=== PATIENT | female | born 1945 | race Caucasian/White ===

== ENCOUNTER 2022-08-09 05:14 | Observation (INO) ==
--- NOTE | 2022-07-21 15:25 | PAT Medication Instructions ---
Medication Instructions Date of Service July 21, 2022 Home Medications amlodipine 5 mg tablet 5 mg PO QPM aspirin 81 mg tablet,delayed release 81 mg PO QAM atorvastatin 80 mg tablet 80 mg PO QPM carvedilol 6.25 mg tablet 6.25 mg PO BID empagliflozin 25 mg tablet (Jardiance) 25 mg PO QAM levothyroxine 75 mcg capsule 75 mcg PO QAM linagliptin 5 mg tablet (Tradjenta) 5 mg PO QAM losartan 25 mg tablet 25 mg PO QAM montelukast 10 mg tablet 10 mg PO QPM omeprazole 20 mg capsule,delayed release 20 mg PO BID sertraline 25 mg tablet 25 mg PO QPM STOP 3 days before surgery empagliflozin 25 mg tablet (Jardiance) 25 mg PO QAM DO NOT take the morning of surgery linagliptin 5 mg tablet (Tradjenta) 5 mg PO QAM losartan 25 mg tablet 25 mg PO QAM Take morning of surgery With a small sip of water, OTHERWISE NOTHING TO EAT OR DRINK AFTER MIDNIGHT: aspirin 81 mg tablet,delayed release 81 mg PO QAM (unless directed otherwise by surgeon) carvedilol 6.25 mg tablet 6.25 mg PO BID levothyroxine 75 mcg capsule 75 mcg PO QAM omeprazole 20 mg capsule,delayed release 20 mg PO BID Take evening before surgery amlodipine 5 mg tablet 5 mg PO QPM atorvastatin 80 mg tablet 80 mg PO QPM carvedilol 6.25 mg tablet 6.25 mg PO BID montelukast 10 mg tablet 10 mg PO QPM sertraline 25 mg tablet 25 mg PO QPM omeprazole 20 mg capsule,delayed release 20 mg PO BID Other Notes If you have any questions please call us at [phone] or [phone] or [phone] or [phone]
--- NOTE | 2022-07-25 10:46 | Anesthesiology Consultation ---
Date of Service July 25, 2022 Assessment & Plan (1) Encounter for pre-operative examination: - COVID screening: Per assessment on 07/25: No known COVID-19 positive contacts or current COVID-19 related symptoms. Travel screen negative. Patient vaccinated. At surgeon discretion if preop Covid testing being done. - Check BS[facility] AM DOS - Outpatient joint assessment: Pt currently scheduled for inpatient pathway. If surgeon requests review for outpatient joint pathway, patient is not recommended candidate for outpatient joint program from anesthesia standpoint. Chart Review Chart Review: Acceptable Risk for Surgery and Patient seen in Pre Admission Testing Teaching & Discussion Pre-Anesthesia Teaching/Discussion Notes: Instructed NPO after midnight before surgery,except medications with 15 cc of water. Medication instructions provided according to the PAT guidelines. History Surgery Operation Date: 08/09/22 10:45 Proposed Procedures p Right Total Knee Arthroplasty - Imtiaz Gay DO Height/Weight Height: 5 ft Weight: 61 kg Allergies Allergy/AdvReac Type Severity Reaction Status Date / Time house dust mite Allergy Unknown Verified 07/21/22 13:54 No Known Drug Allergies Allergy Unknown Verified 07/21/22 13:54 pollen Allergy Unknown Uncoded 07/21/22 13:54 Medications Home Medications Medication Instructions Recorded Confirmed Last Taken amlodipine 5 mg tablet 5 mg PO QPM 11/03/20 07/21/22 Unknown aspirin 81 mg tablet,delayed 81 mg PO QAM 11/03/20 07/21/22 Unknown release atorvastatin 80 mg tablet 80 mg PO QPM 11/03/20 07/21/22 Unknown carvedilol 6.25 mg tablet 6.25 mg PO BID 11/03/20 07/21/22 Unknown empagliflozin 25 mg tablet 25 mg PO QAM 11/03/20 07/21/22 Unknown (Jardiance) levothyroxine 75 mcg capsule 75 mcg PO QAM 11/03/20 07/21/22 Unknown linagliptin 5 mg tablet (Tradjenta) 5 mg PO QAM 11/03/20 07/21/22 Unknown losartan 25 mg tablet 25 mg PO QAM 11/03/20 07/21/22 Unknown montelukast 10 mg tablet 10 mg PO QPM 11/03/20 07/21/22 Unknown omeprazole 20 mg capsule,delayed 20 mg PO BID 11/03/20 07/21/22 Unknown release sertraline 25 mg tablet 25 mg PO QPM 11/03/20 07/21/22 Unknown Past Medical History Medical History Chronic rhinitis Depression Diabetes Environmental and seasonal allergies GERD (gastroesophageal reflux disease) Hyperlipidemia Hypertension LBBB (left bundle branch block) Chronic (per pt, diagnosed 20+ years ago), noted on 07/02/2021 EKG scanned into [employer] Sleep apnea CPAP (compliant) TMJ arthralgia resolved Exercise / Class Metabolic Activity II 4-5 Yardwork/Stairs/Walk up hill Past Family History Family History Other Asthma Heart disease Hypertension No family history of adverse response to anesthesia Stroke Past Surgical History Surgical History History of carpal tunnel release of both wrists 2021 History of esophagogastroduodenoscopy (EGD) History of hysterectomy History of knee surgery LEFT History of tonsillectomy Hx of cardiac catheterization 20+ years ago (told LBBB) > no stents/significant findings per pt Hx of colonoscopy Nausea and vomiting after administration of anesthetic agent Status post wisdom tooth extraction Past Anesthesia History No Hx of Anesthesia Complications (except remote hx PONV) and No Family Hx of Anesthesia Complications History of PONV History of PONV (Remote) and Hx of Motion Sickness Social History Smoking Status: Never smoker Do You Dip or Chew Tobacco: No Hx Alcohol Use: Yes alcohol intake frequency: a few times a month Hx Substance Use: No substance use type: does not use Review of Systems Patient denies chest pain, shortness of breath, dyspnea on exertion, fever, chills, cough, wheezing, palpitations. Physical Exam Vital Signs VITALS BP 113/74 P 83 TEMP 98.5 SP02 95%RA RESP 16 PHYSICAL Full cervical extension range of motion. Full TMJ range of motion. TMD 3 finger breaths Mallampati Score 3 Dentition: missing molars, dental work (on sides) Lungs: clear throughout to auscultation Cardiac: regular rate and rhythm, no murmurs noted Spine: normal Carotid arteries: negative bruit Extremities: no edema Lab Results Anesthesia Preop Results Results Anesthesia Widget: WBC 7.52 K/ul (4.8-10.8) 07/25/22 Hgb 14.6 g/dl (12.0-16.0) 07/25/22 Hct 43.0 % (37.0-47.0) 07/25/22 Plt 303 K/uL (130-400) 07/25/22 Na 143 mmol/L (136-145) 07/25/22 K 3.4 mmol/L (3.5-5.1) L 07/25/22 Cl 105 mmol/L (98-107) 07/25/22 CO2 32 mmol/L (21-32) 07/25/22 BUN 19 mg/dl (6-23) 07/25/22 Creat 0.72 mg/dl (0.6-1.2) 07/25/22 Glucose Level 127 mg/dl (70-99(Fasting)) H 07/25/22 PT 10.8 Seconds (9.0-12.0) 07/25/22 PTT 25.4 Seconds (21.0-31.0) 07/25/22 INR 1.0 (0.9-1.1) 07/25/22 HA1c 6.7 % (4.5-5.6) H 07/25/22 Urine Color Yellow 07/25/22 Urine Appearance Clear (Clear) 07/25/22 Urine pH 6.0 (4.5-7.5) 07/25/22 Urine Specific [place] 1.020 (1.000-1.030) 07/25/22 Urine Protein Negative (Negative) 07/25/22 Urine Glucose (UA) 3+ (Negative) H 07/25/22 Urine Ketones Negative (Negative) 07/25/22 Urine Blood Negative (Negative) 07/25/22 Urine Nitrite Negative (Negative) 07/25/22 Urine Bilirubin Negative (Negative) 07/25/22 Urine Urobilinogen Negative (Negative) 07/25/22 Urine Leukocyte Esterase Negative (Negative) 07/25/22 Blood Type A Positive 07/25/22 Antibody Screen NEGATIVE 07/25/22 Testing Electrocardiogram Date: 07/25/22 NSR at 78bpm. LAD. LBBB (chronic). Chest X-Ray Date: 07/25/22 Findings: + NAD COVID-19 Risk Screen Screening Information COVID-19 Screen Date: 07/25/22 Exposure 21 Days Family/Household +COVID Last 21 Days: No Exposure 10 Days Any COVID Exposure Last 10 Days: No Symptoms Last 10 Days Experienced COVID Sx Last 10 Days: No + COVID 0-90 Days COVID + in Last 0-90 Days: No
--- NOTE | 2022-07-25 15:33 | History & Physical Report ---
Date of Service July 25, 2022 date of surgery: 08/09/22 Procedure: Right Total Knee Arthroplasty Surgeon: Imtiaz Gay Assessment & Plan (1) Arthritis of right knee: Plan: Risk and benefits of the procedure discussed in detail, she would like to proceed with a right total knee replacement. We will stay overnight at the hospital with plan for discharge home with home health physical therapy. She does live alone however her next-door neighbor is her family member and states they are willing to help her out after the surgery. Will place on aspirin 81 mg twice a day for 1 month postop, she will need medical clearance from Dr. Singh, she is scheduled for this on 07/26. She otherwise has no other questions or concerns and would like to proceed with right total knee replacement The risks and benefits have been discussed including, but not limited to, risk of infection, nerve injury, stiffness, loss of motion, failure to improve, etc. Reasonable outcomes and options of treatment were discussed. An explanation of appropriate alternatives to the procedure that may be advantageous were discussed and their risks and benefits, as well as the risks and benefits of not proceeding with treatment. I offered to answer any additional inquiries concerning the treatment involved. All the patient's questions were answered. The patient is agreeable, understanding of the treatment plan and alternatives, and wishes to proceed with the treatment plan. History of Present Illness Chief Complaint: Right knee pain Primary Care Provider: Jacques Fletcher DO Ms Kitchen is a pleasant 76-year-old female who presents for preop evaluation prior to right total knee replacement. She states she been having pain in his knee for many years now which is gradually worsened and is now affecting her daily activities including walking standing using stairs. She denies any previous surgeries has tried multiple cortisone injections as well as viscosupplementation without relief. She does use Tylenol as well on occasion for pain. Rates her current pain a 7 out of 10. At this point time is felt conservative measures like proceed with a right total knee replacement Allergies Allergy/AdvReac Type Severity Reaction Status Date / Time house dust mite Allergy Unknown Verified 07/21/22 13:54 No Known Drug Allergies Allergy Unknown Verified 07/21/22 13:54 pollen Allergy Unknown Uncoded 07/21/22 13:54 Home Medications Medication Instructions Recorded Confirmed Type amlodipine 5 mg tablet 5 mg PO QPM 11/03/20 07/21/22 History aspirin 81 mg tablet,delayed 81 mg PO QAM 11/03/20 07/21/22 History release atorvastatin 80 mg tablet 80 mg PO QPM 11/03/20 07/21/22 History carvedilol 6.25 mg tablet 6.25 mg PO BID 11/03/20 07/21/22 History empagliflozin 25 mg tablet 25 mg PO QAM 11/03/20 07/21/22 History (Jardiance) levothyroxine 75 mcg capsule 75 mcg PO QAM 11/03/20 07/21/22 History linagliptin 5 mg tablet (Tradjenta) 5 mg PO QAM 11/03/20 07/21/22 History losartan 25 mg tablet 25 mg PO QAM 11/03/20 07/21/22 History montelukast 10 mg tablet 10 mg PO QPM 11/03/20 07/21/22 History omeprazole 20 mg capsule,delayed 20 mg PO BID 11/03/20 07/21/22 History release sertraline 25 mg tablet 25 mg PO QPM 11/03/20 07/21/22 History Past Med/Surg History Medical History Chronic rhinitis Depression Diabetes Environmental and seasonal allergies GERD (gastroesophageal reflux disease) Hyperlipidemia Hypertension LBBB (left bundle branch block) Chronic (per pt, diagnosed 20+ years ago), noted on 07/02/2021 EKG scanned into [facility] [employer] [facility] ([facility]) Sleep apnea CPAP (compliant) TMJ arthralgia resolved Surgical History History of carpal tunnel release of both wrists 2021 History of esophagogastroduodenoscopy (EGD) History of hysterectomy History of knee surgery LEFT History of tonsillectomy Hx of cardiac catheterization 20+ years ago (told LBBB) > no stents/significant findings per pt Hx of colonoscopy Nausea and vomiting after administration of anesthetic agent Status post wisdom tooth extraction Family History Other Asthma Heart disease Hypertension No family history of adverse response to anesthesia Stroke Social History Smoking Status: Never smoker Second Hand Exposure: No; Hx Alcohol Use: Yes Alcohol Intake Frequency: Monthly or Less Hx Substance Use: No Preferred Language: Bulgarian Communication Ability: Effective Copy Chief Required: No Beliefs That Will Affect Care: None marital status: Current Living Situation: Alone current occupational status: retired How many Children do You have: 3 Feels Safe at Home: Yes Assistive Devices: CPAP and Glasses Review of Systems 2 Review of Systems: All systems reviewed & are unremarkable except as noted in HPI & below Constitutional: no fever, no chills and no sweats Respiratory: no cough and no dyspnea Cardiovascular: no chest pain, no dyspnea and no orthopnea Gastrointestinal: no abdominal pain, no nausea and no vomiting Musculoskeletal: as per Subjective / HPI Physical Exam Physical Exam: HT: 5ft WT: 61kg Constitutional: WD/WN, vitals as above no acute distress Respiratory: normal respiratory effort, lungs clear to auscultation no respiratory distress, no labored breathing and does not use accessory muscles Cardiovascular: RRR, no murmur, no edema Gastrointestinal (Abdomen): normal bowel sounds, soft, nontender, no hepatosplenomegaly Musculoskeletal: Knee: + knee abnormal to inspection (Right Knee: ), + effusion (+1 effusion), + limited ROM of knee (ROM 0/3/110), + knee ROM with crepitation, + joint line tenderness (medial joint line) and + Komal's sign positive; no deformity, no skin erythema, no ecchymosis, no valgus laxity, no varus laxity, anterior drawer test negative, Shayla's sign negative and pivot shift test negative Results & Data Results & Data ([facility]) Diagnostic Findings Right Knee X-ray: Right knee series showing advanced degenerative changes to the right knee, narrowing of the medial compartment and patello-femoral joint with patellar spurring noted, findings showing joint space narrowing of the medial compartment and patello-femoral joint, osteophyte formation and subchondral sclerosis noted. overall varus alignment. no acute bony pathology noted.
[2022-08-09] MEDS ORDERED: dexAMETHasone 4 MG TAB PO SCH (06:00)
[2022-08-09] MEDS ORDERED: FAMOTIDINE 20 MG TAB PO SCH (06:00)
[2022-08-09] MEDS ORDERED: TRANEXAMIC ACID 1,000 MG **IV Pre-op IV SCH (06:00)
[2022-08-09] MEDS ORDERED: CeleBREX 200 MG CAP PO SCH (06:00)
[2022-08-09] MEDS ORDERED: TRANEXAMIC ACID 1,000 MG **IV Intra-op IV SCH (06:00)
[2022-08-09] MEDS ORDERED: GABAPENTIN 300 MG CAP PO SCH (06:00)
[2022-08-09] MEDS ORDERED: ACETAMINOPHEN 500 MG TAB PO SCH (06:00)
[2022-08-09] MEDS ORDERED: METOCLOPRAMIDE HCL 10 MG TABLET PO SCH (06:00)
[2022-08-09] MEDS ORDERED: ceFAZolin 2000MG 2,000 MG/15 ML SYR IV SCH (06:00)
[2022-08-09] MEDS ORDERED: LR 500ML BOLUS, THEN 15ML/HR IV SCH (06:00)
[2022-08-09] MEDS ORDERED: ROPIVACAINE 0.5% HCL/PF 150 MG, BUPIVACAINE 0.75% MPF 20 ML, EPINEPHrine 30MG/30ML (OR ... INSTIL SCH (06:00)
[2022-08-09] MEDS ORDERED: ROPIVACAINE 0.5% 5 MG/ML 30 ML VIAL ONE (06:14)
[2022-08-09] MEDS ORDERED: BUPIVACAINE 0.5 % 5 MG/1 ML PF 10ML VIAL ONE (06:14)
[2022-08-09] MEDS ORDERED: ORTHO JOINT ANESTHETIC ONE (06:37)
[2022-08-09] MEDS ORDERED: PROPOFOL IV EMULSION 10 MG/ML 20 ML VIAL IV ONE (06:42)
[2022-08-09] MEDS ORDERED: LIDOCAINE 2% MPF LOCAL 5 ML VIAL INFIL ONE (06:42)
[2022-08-09] MEDS ORDERED: MIDAZOLAM HCL 1 MG/ML 2ML VIAL ONE (06:42)
[2022-08-09] MEDS ORDERED: fentaNYL citrate 100 MCG/2 ML VIAL IV PRN (06:45)
[2022-08-09] MEDS ORDERED: ATROPINE SULFATE 0.1 MG/ML 10ML SYR IV PRN (06:45)
[2022-08-09] MEDS ORDERED: ePHEDrine sulfate 50 MG/ML AMP IV PRN (06:45)
[2022-08-09] MEDS ORDERED: ONDANSETRON INJ 2 MG/ML 2 ML VIAL IV PRN ×2 (06:45→09:50)
--- NOTE | 2022-08-09 07:05 | History & Physical Bridge Note ---
Date of Service August 09, 2022 History & Physical Bridge Note I have examined the patient, reviewed the History & Physical and in the interval since the performance of the History & Physical I have noted the following changes of clinical significance: no changes noted
--- NOTE | 2022-08-09 08:22 | Operative Report ---
Post Operative Report Pre & Post Diagnosis Operation Date: 08/09/22 07:00 Pre-Op Diagnosis: Right Knee Osteoarthritis Post-Op Diagnosis: Right Knee Osteoarthritis I identified the patient and participated in the time-out.: Yes Procedure Operation Date: 08/09/22 07:00 Actual Procedures p Right Total Knee Arthroplasty(Right) utilizing [employer] Visual Effects journey 2 patient matched total knee arthroplasty size femur 3 tibia to polytwelve patella 29 abel- Imtiaz Gay DO Surgeon Imtiaz Gay DO Ornithology Teacher Rashel Camacho Estimated Blood Loss 5 Findings Consistent with Post-Op Diagnosis Patient presents with a 10 degree flexion contracture severe end-stage tricompartmental DJD with eburnated [id number] marginal osteophyte subchondral sclerosis large effusion Specimens Bone and cartilage Drains Medium bore Hemovac Anesthesia Type MAC Spinal Regional Complications none Disposition Accompanied Patient To Recovery: No Disposition: Recovery Room Indications Patient presents after failed attempted conservative manage including physical therapy anti-inflammatories relative rest activity modification corticosteroid injection viscosupplementation above intraoperative findings were noted Description of Procedure After proper prepping and draping of the Right lower extremity anterior midline incision was made over the region of the extensor extensor mechanism after meticulous hemostasis was obtained and maintained in subcutaneous tissues a medial parapatellar incision was made The patella was subluxed lateralward the medial lateral gutter were cleaned from any hypertrophic synovitis and scar tissue of the distal femoral block was placed and the distal femoral osteotomy cut was made subsequently the chamfers anterior and posterior osteotomy cuts were made utilizing the 4-in-1 block the tibia was subsequently subluxed anteriorward medial and ateral meniscal remnants were excised in their entirety remnants of the anterior and posterior cruciate ligaments were excised in their entirety excellent exposure of the proximal tibia was obtained the tibial osteotomy guide was placed on the proximal tibial osteotomy cut was made once again the knee was irrigated with copious amounts of sterile saline solution the patella was subsequently everted lateralward thickened scar tissue around the patella was removed the patella was subsequently cut utilizing a freehand technique and was drilled prepared for final preparation and placement of patella socially flexion-extension gaps were checked and the equal and symmetric trials were placed to the appropriate femoral and tibial trials with poly-spacer being placed for equal flexion and extension gaps and full range of motion including extension to 0 and flexion to 140 the trial components after having been taken to recovery range of motion was subsequently removed meticulous hemostasis was obtained and maintained subsequently a knee block injection of joint cocktail including ropivacaine 0.5% 150 mg. Bupivacaine 0.5% epinephrine 1-200,030 mL's toradol 30 mg dexamethasone 4 mg ketamine 10 mg clonidine 100 micrograms normal saline solution 30 mg was infiltrated into the soft tissues of the posterior knee medial lateral gutters and periosteal synovium special attention was paid to protect neurovascular structures at all times subsequently trial components having been removed the knee was irrigated with sterile saline solution. debris was removed the proximal tibia was subsequently prepared and was made ready for the placement of the tibial component tibial component was also cemented and tamped into position the femoral component was subsequently placed and cemented in the position the patellar component was subsequently cemented in position because hemostasis once again obtained and maintained wound having been thoroughly irrigated with debridement and debridement lavage was performed as well as a medial parapatellar incision closed with #1 Vicryl in interrupted fashion subcutaneous was closed with #2 Vicryl skin was closed with skin clips. PA-C was necessary for prepping and drapping as well as wound closure of deep fascia Sub cutaneous tissue and skin and was necessary for the case. A sterile compressive dressing was placed patient was taken to recovery in stable condition of report dictated by Victor Hugo I attest to the content of the Intraoperative Record and any orders documented therein. Any exceptions are noted below.Due to the complex nature of the procedure, the entire surgery was performed with the operational assistance of Rashel CARLSON. The special ed assistant, under direct supervision, was involved in the actual performance of all aspects of the surgical procedure including hemostasis, tissue retraction and incision, instrument management, patient positioning, and wound closure. I attest to the content of the Intraoperative Record and any orders documented therein. Any exceptions are noted below.
[2022-08-09] MEDS ORDERED: bisacodyL 10 MG SUPP PR PRN (09:50)
[2022-08-09] MEDS ORDERED: PHARMACY GLYCEMIC MGMT CONSULT PRN (09:50)
[2022-08-09] MEDS ORDERED: HYDROmorphone INJ 0.5 MG/0.5 ML SYR IV PRN (09:50)
[2022-08-09] MEDS ORDERED: EMPAGLIFLOZIN 25 MG TAB PO SCH (09:50)
[2022-08-09] MEDS ORDERED: LOSARTAN POTASSIUM 25 MG TAB PO SCH (09:50)
[2022-08-09] MEDS ORDERED: NALOXONE HCL 0.4 MG/1 ML VIAL/CARP IV PRN (09:50)
[2022-08-09] MEDS ORDERED: NON-FORMULARY MEDICATION (Linagliptin [Tradjenta] 5 mg tablet) PO SCH (09:50)
[2022-08-09] MEDS ORDERED: MAGNESIUM HYDROXIDE SUSP 30 ML UDC PO PRN (09:50)
[2022-08-09] MEDS ORDERED: diphenhydrAMINE 50 MG/ML VIAL IV PRN (09:50)
--- NOTE | 2022-08-09 09:50 | XRay Report ---
XR knee RT 1 or 2V routine CLINICAL HISTORY: Surgical Post Op COMPARISON: Three-phase bone scan of the knees December 15, 2010. FINDINGS: Alignment of the total right knee arthroplasty is anatomic. There is no periprosthetic fra cture or unexpected radiopaque foreign body. There are surgical drains. IMPRESSION: Expected findings following total right knee arthroplasty. ACT 112: Negative or not required by law. Electronically signed by: Trenton Bronson M.D. 08/09/2022 9:49 AM
[2022-08-09] MEDS: SODIUM CHLORIDE 0.9% 1000ML 1,000 ML IV SCH ×2 (10:03→19:11)
--- NOTE | 2022-08-09 10:08 | Anesthesiology Progress Note ---
Date of Service August 09, 2022 Anesthesia Post Procedure Vital Signs Vital Signs: Temp Pulse Pulse Resp BP Pulse Ox O2 Del Method 08/09/22 09:40 70 18 144/63 H 93 Room Air 08/09/22 09:30 97.5 F L 72 12 156/77 H 96 Room Air 08/09/22 09:20 68 18 161/67 H 95 Room Air 08/09/22 09:10 70 12 158/69 H 93 Room Air 08/09/22 09:00 97.9 F 69 13 155/65 H 98 Oxymask 08/09/22 06:04 98.4 F 79 18 194/99 H 96 Room Air O2 Flow Rate 08/09/22 09:40 08/09/22 09:30 08/09/22 09:20 08/09/22 09:10 08/09/22 09:00 5 08/09/22 06:04 Pain Intensity Right Knee: Pain Intensity: 2 Transfer of Care Handoff Completed per policy Notes Mental Status: alert / awake / arousable and participated in evaluation Patient Amnestic to Procedure: Yes Nausea / Vomiting: adequately controlled Pain: adequately controlled Airway Patency, RR, SpO2: stable & adequate BP & HR: stable & adequate Hydration State: stable & adequate Neuraxial Anesthesia: was administered and sensory block is resolving Anesthetic Complications: no major complications apparent and Pt Satisfied with anesthetic care
--- NOTE | 2022-08-09 10:23 | Hospitalist Consultation ---
Date of Consultation August 09, 2022 Assessment & Plan (1) Status post right knee replacement: -Perioperative abx, DVT PPX, IV fluids, and pain control per the primary team -The patient is currently afebrile, hemodynamically stable, and stable on RA -Agree with am labs, we will review -Ok with continuing IV fluids with end date of tomorrow as she is without a history of CHF and is Euvolemic on exam -If stable tomorrow we will sign off -Please reach out with any questions or concerns (2) Hypertension: -Stable -Agree with continuing carvedilol and amlodipine today -Changed the start date of her Losartan t0 08/10 to avoid post-operative hypotension (3) DM II (diabetes mellitus, type II), controlled: -Hold Empagliflozin -Pharmacy glycemic consult placed by the primary team, continue to follow their recommendations (4) Sleep apnea: -HS CPAP ordered (5) Hyperlipidemia: -Continue statin (6) GERD (gastroesophageal reflux disease): -Agree with daily pantoprazole while admitted for stress ulcer PPX (7) Depression: -Continue sertraline (8) Hypothyroidism: -Continue levothyroxine Plan The patient was discussed with Dr. Alva at the time of the consult Supervising Physician Co-Signing Physician Notes PA Supervision Note: I personally saw and examined the patient. I verified all loving points and agree with ALDO Larkin with the following exceptions and/or additions: Subjective: 76-year-old female past medical history significant for DM 2, sleep apnea, hypertension, right knee arthritis admitted for postop care s/p total right knee arthroplasty by Dr. Gay today 08/09/2022. Doing well save for some right knee discomfort, no other complaints such as shortness of breath, chest pain, recent fevers, diarrhea, nausea. Physical exam: Vitals reviewed Gen: Alert and oriented, NAD CV: RRR no murmurs Pulm: CTAB no wheezes or crackles Abd: +BS soft NT ND no masses Ext: no edema, 2+ DP pulses Skin: no rashes, warm/dry Neuro: No focal neurologic deficits Labs, Rads, and ECG reviewed Assessment and Plan: Right knee arthritis: s/p right TKA today by Dr. Gay, doing well, pain management and DVT ppx at the discretion of primary team. PT and OT when able. DM2: hold home oral agents in favor of SSI, glycemic consult ordered. HTN: History of, BP 120s, hold losartan for today in post-op period and resume tomorrow, continue amlodipine and Coreg. Plan otherwise as stated above. History of Present Illness Reason for Consultation: Post-op medical management Requesting Physician: Imtiaz Gay DO Attending Physician: Dr. ely Alva DO History of Present Illness Tanja is a 76 year old female with a PMH significant for GERD, HTN, LBBB, stress in continence, BPPV, DM II, hypothyroidism, LORNE on CPAP, MDD, and hyperlipidemia who presented to the [facility] on 08/09/22 for elective Right Total Knee Arthroplasty with Dr. Gay. Per the operative report, there were no reported intraoperative complications, EBL was listed as 5 cc, and anesthesia w as listed as "[facility]". Review of the patient's vitals since arrival shows her to be afebrile, hemodynamically stable, and stable on RA. At the time of the exam the patient was resting comfortably in bed in no acute distress. She currently has no complaints following her procedure, she confirms that she uses HS CPAP but did not bring hers. She did not take her BP medications this am as per her pre-op instructions. Please refer to Dr. Alva's attestation for any changes to the treatment plan. Allergies Allergy/AdvReac Type Severity Reaction Status Date / Time No Known Allergies Allergy Verified 08/09/22 06:53 Home Medications Medication Instructions Recorded Confirmed Type amlodipine 5 mg tablet 5 mg PO QPM 11/03/20 08/09/22 History aspirin 81 mg tablet,delayed 81 mg PO QAM 11/03/20 08/09/22 History release atorvastatin 80 mg tablet 80 mg PO QPM 11/03/20 08/09/22 History carvedilol 6.25 mg tablet 6.25 mg PO BID 11/03/20 08/09/22 History empagliflozin 25 mg tablet 25 mg PO QAM 11/03/20 08/09/22 History (Jardiance) levothyroxine 75 mcg capsule 75 mcg PO QAM 11/03/20 08/09/22 History linagliptin 5 mg tablet (Tradjenta) 5 mg PO QAM 11/03/20 08/09/22 History losartan 25 mg tablet 25 mg PO QAM 11/03/20 08/09/22 History montelukast 10 mg tablet 10 mg PO QPM 11/03/20 08/09/22 History omeprazole 20 mg capsule,delayed 20 mg PO BID 11/03/20 08/09/22 History release sertraline 25 mg tablet 25 mg PO QPM 11/03/20 08/09/22 History Patient History Medical History (Updated 08/09/22 @ 10:43 by Valdemar Larkin PA-C) Chronic rhinitis Depression Diabetes Environmental and seasonal allergies GERD (gastroesophageal reflux disease) Hyperlipidemia Hypertension LBBB (left bundle branch block) Chronic (per pt, diagnosed 20+ years ago), noted on 07/02/2021 EKG scanned into [employer] Sleep apnea CPAP (compliant) TMJ arthralgia resolved Surgical History (Updated 08/09/22 @ 10:42 by Valdemar Larkin PA-C) History of carpal tunnel release of both wrists 2021 History of esophagogastroduodenoscopy (EGD) History of hysterectomy History of knee surgery LEFT History of tonsillectomy Hx of cardiac catheterization 20+ years ago (told LBBB) > no stents/significant findings per pt Hx of colonoscopy Nausea and vomiting after administration of anesthetic agent Status post wisdom tooth extraction Family History Other Asthma Heart disease Hypertension No family history of adverse response to anesthesia Stroke Social History Smoking Status: Never smoker Second Hand Exposure: No; Do You Dip or Chew Tobacco: No; Tobacco Cessation Education Requested by Patient: No Hx Alcohol Use: Yes Alcohol Intake Frequency: Monthly or Less Hx Substance Use: No Preferred Language: Setswana Communication Ability: Effective 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 All systems have been reviewed and are otherwise negative. Physical Exam Physical Exam: Physical Exam: General: In no acute distress, stated age, well-nourished, good hygiene HEENT: Normocephalic, atraumatic, no scleral icterus, pupils around round, symmetrical, and reactive to light, moist mucus membranes, trachea midline, no thyromegaly Chest/Pulm: No respiratory distress, symmetrical chest expansion, clear breath sounds throughout Cardiac: RRR, no murmurs noted Abdomen: Negative for ascites and bruising, normoactive bowel sounds, soft, non-tender to palpation throughout Musculoskeletal: Patient with RLE currently wrapped and with BL SCDs on the LEs. No signs of drainage at the bandage site, patient with intact motor function and sensation in the BL LE's Extremities: Radial, dorsalis pedis, and posterior tibial pulses are intact and symmetrical, no edema noted in the BL LE's Skin: Warm, dry, no rashes , lesions, or scars noted Neuro: Alert and oriented to person, place, month, year, and president, no focal defects, no tremors noted Psych: No acute distress, calm and cooperative during the exam Results & Data Results & Data ([facility]) Vital Signs (Past 12 Hours) Vital Signs Temp Pulse Pulse Resp BP Pulse Ox O2 Del Method 08/09/22 10:00 36.6 C 71 18 138/72 96 Room Air 08/09/22 09:40 70 18 144/63 H 93 Room Air 08/09/22 09:30 36.4 C L 72 12 156/77 H 96 Room Air 08/09/22 09:20 68 18 161/67 H 95 Room Air 08/09/22 09:10 70 12 158/69 H 93 Room Air 08/09/22 09:00 36.6 C 69 13 155/65 H 98 Oxymask 08/09/22 06:04 36.9 C 79 18 194/99 H 96 Room Air O2 Flow Rate 08/09/22 10:00 08/09/22 09:40 08/09/22 09:30 08/09/22 09:20 08/09/22 09:10 08/09/22 09:00 5 08/09/22 06:04 Laboratory Results Abnormal lab results 08/09/22 08/09/22 Range/Units 05:37 09:12 POC Glucose 156 H 161 H (70-99) mg/dl Diagnostic Findings Knee X-Ray 08/09/22 08:59 XR knee RT 1 or 2V routine CLINICAL HISTORY: Surgical Post Op COMPARISON: Three-phase bone scan of the knees December 15, 2010. FINDINGS: Alignment of the total right knee arthroplasty is anatomic. There is no periprosthetic fracture or unexpected radiopaque foreign body. There are surgical drains. IMPRESSION: Expected findings following total right knee arthroplasty. ACT 112: Negative or not required by law. Electronically signed by: Trenton Bronson M.D. 08/09/2022 9:49 AM ECG Additional Comments: No ECG available at the time of the consult PG Care Time/CCT Total # of Minutes Spent Total Time Spent with Patient: Total time spent is greater than 50% in coordination of care (as documented) at patient's floor/unit and/or counseling patient: Coding Level of Care Code INP/OBS CONSULT LVL 4, 60 MIN Diagnoses Status post right knee replacement Z96.651 Hypertension I10 DM II (diabetes mellitus, type II), controlled E11.9 Sleep apnea G47.30 Hyperlipidemia E78.5 GERD (gastroesophageal reflux disease) K21.9 Depression F32.A Hypothyroidism E03.9
--- NOTE | 2022-08-09 10:27 | Pharmacy Report ---
Pharmacy Glycemic Short Note 2 - Date of Service August 09, 2022 - Glycemic Short BSG Results (Last 24 hours): 08/09/22 08/09/22 05:37 09:12 POC Glucose 156 H 161 H OUTPATIENT ANTIDIABETIC REGIMEN: * beba martinez * A1c 6.7% ASSESSMENT: * 76 year old now s/p R TKA, POD 0 - type 2 diabetic managed on orals at home * Received PO dexamethasone preop, anticipate BSGs to rise. Will start novolog stress of 2/3 for now and trend BSGs. PLAN FOR INPATIENT GLYCEMIC CONTROL: * Hold outpatient oral diabetes medications * Basal insulin * Lantus - hold * Bolus insulin * NovoLog per scale ACHS or Q6hrs while NPO * Goal Range: Low 110 mg/dL - High 140 mg/dL * Correction Factor: 30 mg/dL/unit * Nutritional / Prandial insulin per carb ratio of 1 unit per 12 grams CHO consumed
[2022-08-09] MEDS ORDERED: GLUCAGON FOR INJ 1 MG VIAL IM PRN (10:30)
[2022-08-09] MEDS ORDERED: CARBOHYDRATES FOR HYPOGLYCEMIA PO PRN (10:30)
[2022-08-09] MEDS ORDERED: GLUCOSE 10 TAB/TUBE PO PRN (10:30)
[2022-08-09] MEDS ORDERED: DEXTROSE 50% 50 ML SYRINGE IV PRN (10:30)
[2022-08-09] MEDS ORDERED: GLUCOSE 40% GEL 15 GM TUBE PO PRN (10:30)
[2022-08-09] MEDS: PANTOprazole 40 MG TAB PO SCH (10:45)
[2022-08-09] MEDS: DOCUSATE SODIUM 100 MG CAP PO SCH ×2 (10:46→20:28)
[2022-08-09] MEDS: MULTIVITAMIN TAB PO SCH (10:46)
[2022-08-09] MEDS: ASPIRIN 81 MG ECTAB PO SCH ×2 (10:47→20:28)
[2022-08-09] MEDS: INSULIN ASPART PER UNIT SC SCH ×4 (12:24→23:44)
[2022-08-09] MEDS: ACETAMINOPHEN 500 MG TAB PO SCH ×2 (14:07→22:47)
[2022-08-09] MEDS: ceFAZolin 1000MG 1,000 MG/7.5 ML SYR IV SCH ×2 (16:20→22:48)
[2022-08-09] MEDS: oxyCODONE HCL IR 5 MG TAB (IMMEDIATE RELEASE) PO PRN ×2 (17:56→22:47)
[2022-08-09] MEDS: carvediloL 6.25 MG TAB PO SCH (20:28)
[2022-08-09] MEDS: amLODIPine BESYLATE 5 MG TAB PO SCH (20:28)
[2022-08-09] MEDS: MONTELUKAST SODIUM 10 MG TABLET PO SCH (20:29)
[2022-08-09] MEDS: ATORVASTATIN 40 MG TAB PO SCH (20:29)
[2022-08-09] MEDS: SENNA 8.6 MG TAB PO SCH (20:29)
[2022-08-09] MEDS: SERTRALINE HCL 50 MG TABLET PO SCH (20:29)
[2022-08-10] MEDS: INSULIN ASPART PER UNIT SC SCH ×5 (03:50→21:46)
[2022-08-10] MEDS: SODIUM CHLORIDE 0.9% 1000ML 1,000 ML IV SCH (06:15)
[2022-08-10] MEDS: ACETAMINOPHEN 500 MG TAB PO SCH ×3 (06:20→22:11)
[2022-08-10] MEDS: LEVOTHYROXINE SODIUM 75 MCG TABLET PO SCH (06:20)
[2022-08-10 08:05] LABS: Hematocrit (blood only) 31.1 % (37.0-47.0); Hemoglobin 10.6 g/dl (12.0-16.0); Mean Corpuscular Hemoglobin 31.4 pg (25.0-34.0); Mean Corpuscular Hgb Conc 34.1 g/dL (32.0-36.0); Mean Platelet Volume 10.5 fL (9.4-12.4); Platelet Count 233 K/uL (130-400); RDW Standard Deviation 43.4 fL (36.4-46.3); Red Blood Count 3.38 M/uL (4.20-5.40); White Blood Count 14.67 K/ul (4.8-10.8)
[2022-08-10 08:22] LABS: BUN Creatinine Ratio 32.3 (10-20); Creatinine Clr Calc Pharmacy 63.3 ml/min; Est GFR (Non-African American) 88.8 ml/min; Potassium 3.7 mmol/L (3.5-5.1)
[2022-08-10] MEDS: ASPIRIN 81 MG ECTAB PO SCH ×2 (08:26→20:13)
[2022-08-10] MEDS: LOSARTAN POTASSIUM 25 MG TAB PO SCH (08:26)
[2022-08-10] MEDS: PANTOprazole 40 MG TAB PO SCH (08:26)
[2022-08-10] MEDS: carvediloL 6.25 MG TAB PO SCH ×2 (08:26→20:13)
[2022-08-10] MEDS: MULTIVITAMIN TAB PO SCH (08:26)
[2022-08-10] MEDS: DOCUSATE SODIUM 100 MG CAP PO SCH ×2 (08:26→20:13)
[2022-08-10] MEDS: oxyCODONE HCL IR 5 MG TAB (IMMEDIATE RELEASE) PO PRN ×3 (08:28→20:12)
--- NOTE | 2022-08-10 08:52 | Hospitalist Progress Note ---
Date of Service August 10, 2022 Assessment & Plan (1) Status post right knee replacement: Plan: POD#1 s/p TKA w/ Dr Gay. EBL5cc. WBC elevation likely from steroids, has remained afebrile Hgb drop post- op to 10.6, acute blood loss anemia from surgery but also dilu tional aspect as received 2L fluids in melina-operative period Pain control/bowel regimen per primary service DVT prophylaxis planned with ASA 81mg BID PT/OT consults prior to discharge but planning for d/c today (2) Hypertension: Plan: BP stable 154/72 Continues on amlodipine, carvedilol BP/Cr stable and losartan resumed (3) DM II (diabetes mellitus, type II), controlled: Plan: -Hold Empagliflozin while inpatient -Pharmacy glycemic consult placed by the primary team, continue to follow their recommendations resume home meds at d/c (4) Sleep apnea: Plan: -HS CPAP (5) Hyperlipidemia: Plan: -Continue statin (6) GERD (gastroesophageal reflux disease): Plan: protonix for stress ulcer, home meds at d/c (7) Depression: Plan: -Continue sertraline (8) Hypothyroidism: Plan: -Continue levothyroxine -- no TSH in system, f/u PCP for routine monitoring Plan thank you for allowing hospitalist to participate in the care of Ms Kitchen. Hospitalist service will sign off. Please call with any questions/concerns. Admission and Anticipated Discharge Date Admission Date: August 09, 2022 Subjective eval this morning, up in chair, working with therapy. pain controlled with ordered meds no fever/chills, chest pain, shortness of breath, abdominal pain. good appetite. no lightheadedness/dizziness. planning for d/c after lunch with OPPT x 2 weeks. Questions/concerns addressed at this time. Physical Exam Physical Exam: General: WD/WN female sitting up in recliner, NAD HEENT: head normocephalic, atraumatic, R carotid bruit Resp: CTAB, no w/c, on room air CV: RRR, no significant m/r/g, no calf edema/tenderness GI: +BS, soft/NT no estevez MSK/Neuro: maine wrap/dressing to RLE c/d/i, hemovac w/ bloody drainage, KAT green light on, NVI, pulses palpable Psych: AOx, 3 pleasant and cooperative Results & Data Results & Data ([facility]) Vital Signs (Past 12 Hours) Vital Signs Temp Pulse Resp BP Pulse Ox O2 Del Method FiO2 08/10/22 07:42 36.6 C 72 16 154/72 H 94 Room Air 08/10/22 03:47 36.7 C 69 18 164/72 H 96 Room Air, Nasal CPAP 08/09/22 21:00 20 94 21 08/09/22 23:35 36.7 C 73 18 138/83 94 Room Air, Nasal CPAP Laboratory Results 08/10/22 08/10/22 08/10/22 Range/Units 08:12 07:35 07:35 WBC (4.8-10.8) K/ul RBC (4.20-5.40) M/uL Hgb (12.0-16.0) g/dl Hct (37.0-47.0) % MCV (80.0-100.0) fL MCH (25.0-34.0) pg MCHC (32.0-36.0) g/dL RDW Std Deviation (36.4-46.3) fL RDW Coeff of Santino (11.5-14.5) % Plt Count (130-400) K/uL MPV (9.4-12.4) fL Sodium 141 (136-145) mmol/L Potassium 3.7 (3.5-5.1) mmol/L Chloride 109 H (98-107) mmol/L Carbon Dioxide 28 (21-32) mmol/L Anion Gap 4 (3-11) BUN 20 (6-23) mg/dl Creatinine 0.62 (0.6-1.2) mg/dl Est Cr Clr Drug Dosing 63.3 ml/min Est GFR ( Amer) 103.0 ml/min Est GFR (Non-Af Amer) 88.8 ml/min BUN/Creatinine Ratio 32.3 H (10-20) Glucose 137 H (70-99(Fasting)) mg/dl POC Glucose 128 H (70-99) mg/dl Calcium 9.0 (8.5-10.1) mg/dl Hepatitis C Ab (EIA) Pending Hep C Ab Signal/Cutoff Pending 08/10/22 08/10/22 08/09/22 Range/Units 07:35 03:48 23:36 WBC 14.67 H (4.8-10.8) K/ul RBC 3.38 L (4.20-5.40) M/uL Hgb 10.6 L (12.0-16.0) g/dl Hct 31.1 L (37.0-47.0) % MCV 92.0 (80.0-100.0) fL MCH 31.4 (25.0-34.0) pg MCHC 34.1 (32.0-36.0) g/dL RDW Std Deviation 43.4 (36.4-46.3) fL RDW Coeff of Santino 13.0 (11.5-14.5) % Plt Count 233 (130-400) K/uL MPV 10.5 (9.4-12.4) fL Sodium (136-145) mmol/L Potassium (3.5-5.1) mmol/L Chloride (98-107) mmol/L Carbon Dioxide (21-32) mmol/L Anion Gap (3-11) BUN (6-23) mg/dl Creatinine (0.6-1.2) mg/dl Est Cr Clr Drug Dosing ml/min Est GFR ( Amer) ml/min Est GFR (Non-Af Amer) ml/min BUN/Creatinine Ratio (10-20) Glucose (70-99(Fasting)) mg/dl POC Glucose 130 H 204 H (70-99) mg/dl Calcium (8.5-10.1) mg/dl Hepatitis C Ab (EIA) Hep C Ab Signal/Cutoff 08/09/22 08/09/22 08/09/22 Range/Units 20:46 17:07 12:02 WBC (4.8-10.8) K/ul RBC (4.20-5.40) M/uL Hgb (12.0-16.0) g/dl Hct (37.0-47.0) % MCV (80.0-100.0) fL MCH (25.0-34.0) pg MCHC (32.0-36.0) g/dL RDW Std Deviation (36.4-46.3) fL RDW Coeff of Santino (11.5-14.5) % Plt Count (130-400) K/uL MPV (9.4-12.4) fL Sodium (136-145) mmol/L Potassium (3.5-5.1) mmol/L Chloride (98-107) mmol/L Carbon Dioxide (21-32) mmol/L Anion Gap (3-11) BUN (6-23) mg/dl Creatinine (0.6-1.2) mg/dl Est Cr Clr Drug Dosing ml/min Est GFR ( Amer) ml/min Est GFR (Non-Af Amer) ml/min BUN/Creatinine Ratio (10-20) Glucose (70-99(Fasting)) mg/dl POC Glucose 262 H 200 H 221 H (70-99) mg/dl Calcium (8.5-10.1) mg/dl Hepatitis C Ab (EIA) Hep C Ab Signal/Cutoff PG Care Time/CCT Total # of Minutes Spent Total Time Spent with Patient: Total time spent is greater than 50% in coordination of care (as documented) at patient's floor/unit and/or counseling patient: Coding Level of Care Code 95494 SUB INP/OBS CARE 07/13MIN Diagnoses Status post right knee replacement Z96.651 Hypertension I10 DM II (diabetes mellitus, type II), controlled E11.9 Sleep apnea G47.30 Hyperlipidemia E78.5 GERD (gastroesophageal reflux disease) K21.9 Depression F32.A Hypothyroidism E03.9
--- NOTE | 2022-08-10 11:08 | Orthopedic Progress Note ---
Date of Service August 10, 2022 Assessment & Plan (1) Arthritis of right knee: Plan: Postop day 1 status post right total knee arthroplasty PT and OT protocols. Weightbearing as tolerated. Patient has progressed with PT ambulating 100 feet and went up and down 6 steps. DVT prophylaxis-aspirin p.o. twice daily, SCDs, AURORA calderon. Pain management as written. We will add 1 dose of Toradol today to help her with her increased pain. Acute blood loss anemia. Patient was around 14 hemoglobin prior to surgery. She dropped down to 10. She is not having any lightheadedness however she is very tired and exhausted after PT. She is unsure if she wants to go home today or not. We will add the Toradol one-time dose and recheck her and see how she is doing later today. DC planning-patient is planning for home health services upon discharge. Possible discharge home today versus tomorrow. Admission and Anticipated Discharge Date Admission Date: August 09, 2022 Subjective Postop day 1 Patient is lying in bed. She was sleeping upon arrival but easily awoken. Patient states that her therapy went okay but now she feels quite tired and sluggish. She is having some pain in the right knee at this time as well. She required some IV pain medication earlier this morning. She did not have any lightheadedness or dizziness during her physical therapy. She is currently unsure if she wants to go home at this time. Physical Exam Physical Exam: Dressings are clean, dry, and intact. Calves are soft nontender. Neurovascular intact. Toes are mobile. She has good dorsiflexion and plantarflexion of the right foot. Hemovac drainage was 50 mL from the previous shift. Results & Data ([facility]) Vital Signs (Past 12 Hours) Vital Signs Temp Pulse Resp BP Pulse Ox O2 Del Method 08/10/22 07:42 36.6 C 72 16 154/72 H 94 Room Air 08/10/22 03:47 36.7 C 69 18 164/72 H 96 Room Air, Nasal CPAP 08/09/22 23:35 36.7 C 73 18 138/83 94 Room Air, Nasal CPAP Laboratory Results Laboratory Results WBC 14.67 K/ul (4.8-10.8) H 08/10/22 07:35 RBC 3.38 M/uL (4.20-5.40) L 08/10/22 07:35 Hgb 10.6 g/dl (12.0-16.0) L 08/10/22 07:35 Hct 31.1 % (37.0-47.0) L 08/10/22 07:35 MCV 92.0 fL (80.0-100.0) 08/10/22 07:35 MCH 31.4 pg (25.0-34.0) 08/10/22 07:35 MCHC 34.1 g/dL (32.0-36.0) 08/10/22 07:35 RDW Std Deviation 43.4 fL (36.4-46.3) 08/10/22 07:35 RDW Coeff of Santino 13.0 % (11.5-14.5) 08/10/22 07:35 Plt Count 233 K/uL (130-400) 08/10/22 07:35 MPV 10.5 fL (9.4-12.4) 08/10/22 07:35 Sodium 141 mmol/L (136-145) 08/10/22 07:35 Potassium 3.7 mmol/L (3.5-5.1) 08/10/22 07:35 Chloride 109 mmol/L (98-107) H 08/10/22 07:35 Carbon Dioxide 28 mmol/L (21-32) 08/10/22 07:35 Anion Gap 4 (3-11) 08/10/22 07:35 BUN 20 mg/dl (6-23) 08/10/22 07:35 Creatinine 0.62 mg/dl (0.6-1.2) 08/10/22 07:35 Est Cr Clr Drug Dosing 63.3 ml/min 08/10/22 07:35 Est GFR ( Amer) 103.0 ml/min 08/10/22 07:35 Est GFR (Non-Af Amer) 88.8 ml/min 08/10/22 07:35 BUN/Creatinine Ratio 32.3 (10-20) H 08/10/22 07:35 Glucose 137 mg/dl (70-99(Fasting)) H 08/10/22 07:35 POC Glucose 128 mg/dl (70-99) H 08/10/22 08:12 Calcium 9.0 mg/dl (8.5-10.1) 08/10/22 07:35 SARS-CoV-2, RNA, NAAT NEGATIVE (NEGATIVE) 08/09/22 05:25 Impressions Knee X-Ray 08/09/22 08:59 XR knee RT 1 or 2V routine CLINICAL HISTORY: Surgical Post Op COMPARISON: Three-phase bone scan of the knees December 15, 2010. FINDINGS: Alignment of the total right knee arthroplasty is anatomic. There is no periprosthetic fracture or unexpected radiopaque foreign body. There are surgical drains. IMPRESSION: Expected findings following total right knee arthroplasty. ACT 112: Negative or not required by law. Electronically signed by: Trenton Bronson M.D. 08/09/2022 9:49 AM
[2022-08-10] MEDS ORDERED: KETOROLAC TROMETHAMINE 15 MG/ML VIAL IV ONE (11:30)
[2022-08-10] MEDS: ATORVASTATIN 40 MG TAB PO SCH (20:13)
[2022-08-10] MEDS: SERTRALINE HCL 50 MG TABLET PO SCH (20:13)
[2022-08-10] MEDS: amLODIPine BESYLATE 5 MG TAB PO SCH (20:13)
[2022-08-10] MEDS: SENNA 8.6 MG TAB PO SCH (20:13)
[2022-08-10] MEDS: MONTELUKAST SODIUM 10 MG TABLET PO SCH (20:13)
[2022-08-11] MEDS: oxyCODONE HCL IR 5 MG TAB (IMMEDIATE RELEASE) PO PRN ×2 (06:20→13:05)
[2022-08-11] MEDS: LEVOTHYROXINE SODIUM 75 MCG TABLET PO SCH (06:20)
[2022-08-11] MEDS: ACETAMINOPHEN 500 MG TAB PO SCH (06:20)
[2022-08-11 07:49] LABS: Hematocrit (blood only) 30.3 % (37.0-47.0); Hemoglobin 10.1 g/dl (12.0-16.0); Mean Corpuscular Hemoglobin 31.6 pg (25.0-34.0); Mean Corpuscular Hgb Conc 33.3 g/dL (32.0-36.0); Mean Corpuscular Volume 94.7 fL (80.0-100.0); Mean Platelet Volume 10.5 fL (9.4-12.4); Platelet Count 208 K/uL (130-400); RDW Coefficient of Variation 13.5 % (11.5-14.5); RDW Standard Deviation 46.8 fL (36.4-46.3); White Blood Count 8.31 K/ul (4.8-10.8)
[2022-08-11 08:07] LABS: BUN Creatinine Ratio 33.3 (10-20); Calcium 8.8 mg/dl (8.5-10.1); Creatinine Clr Calc Pharmacy 54.5 ml/min; Est GFR (African American) 95.6 ml/min; Est GFR (Non-African American) 82.5 ml/min; Potassium 3.7 mmol/L (3.5-5.1)
--- NOTE | 2022-08-11 08:09 | Orthopedic Progress Note ---
Date of Service August 11, 2022 Assessment & Plan (1) Arthritis of right knee: Plan: Postop day 2 status post right total knee arthroplasty PT and OT protocols. DVT prophylaxis-aspirin p.o. twice daily, SCDs, AURORA calderon. Pain management as written. We will see how the patient progresses today. Plan will be for discharge to home today. DC planning-patient is planning for home health services upon discharge. Admission and Anticipated Discharge Date Admission Date: August 09, 2022 Subjective Postop day 2 Patient sitting up in her chair at the bedside. Waiting for breakfast. Patient was sleeping upon entering the room but was easily awoken. States she has some slight lightheadedness and feels that it is secondary to her oxycodone. She otherwise feels well. She is having some discomfort in the right knee. She states she is hoping that she can go home today Physical Exam Physical Exam: Servando dressing is intact and functioning. She has swelling consistent with surgery of the right knee. She does have some ecchymosis noted. No overt drainage noted on the dressing. Calves are soft and nontender. Neurovascular is intact. Toes are mobile. Hemovac has been removed. Results & Data ([facility]) Vital Signs (Past 12 Hours) Vital Signs Temp Pulse Pulse Resp BP Pulse Ox O2 Del Method 08/11/22 07:11 36.7 C 81 16 154/71 H 92 Room Air 08/10/22 20:30 Room Air 08/10/22 23:08 75 16 95 FiO2 08/11/22 07:11 08/10/22 20:30 08/10/22 23:08 21 Laboratory Results 08/11/22 08/11/22 08/11/22 Range/Units 08:05 07:26 07:26 WBC 8.31 (4.8-10.8) K/ul RBC 3.20 L (4.20-5.40) M/uL Hgb 10.1 L (12.0-16.0) g/dl Hct 30.3 L (37.0-47.0) % MCV 94.7 (80.0-100.0) fL MCH 31.6 (25.0-34.0) pg MCHC 33.3 (32.0-36.0) g/dL RDW Std Deviation 46.8 H (36.4-46.3) fL RDW Coeff of Santino 13.5 (11.5-14.5) % Plt Count 208 (130-400) K/uL MPV 10.5 (9.4-12.4) fL Sodium 141 (136-145) mmol/L Potassium 3.7 (3.5-5.1) mmol/L Chloride 108 H (98-107) mmol/L Carbon Dioxide 29 (21-32) mmol/L Anion Gap 4 (3-11) BUN 24 H (6-23) mg/dl Creatinine 0.72 (0.6-1.2) mg/dl Est Cr Clr Drug Dosing 54.5 ml/min Est GFR ( Amer) 95.6 ml/min Est GFR (Non-Af Amer) 82.5 ml/min BUN/Creatinine Ratio 33.3 H (10-20) Glucose 128 H (70-99(Fasting)) mg/dl POC Glucose 143 H (70-99) mg/dl Calcium 8.8 (8.5-10.1) mg/dl 08/10/22 08/10/22 08/10/22 Range/Units 20:36 17:05 12:05 WBC (4.8-10.8) K/ul RBC (4.20-5.40) M/uL Hgb (12.0-16.0) g/dl Hct (37.0-47.0) % MCV (80.0-100.0) fL MCH (25.0-34.0) pg MCHC (32.0-36.0) g/dL RDW Std Deviation (36.4-46.3) fL RDW Coeff of Santino (11.5-14.5) % Plt Count (130-400) K/uL MPV (9.4-12.4) fL Sodium (136-145) mmol/L Potassium (3.5-5.1) mmol/L Chloride (98-107) mmol/L Carbon Dioxide (21-32) mmol/L Anion Gap (3-11) BUN (6-23) mg/dl Creatinine (0.6-1.2) mg/dl Est Cr Clr Drug Dosing ml/min Est GFR ( Amer) ml/min Est GFR (Non-Af Amer) ml/min BUN/Creatinine Ratio (10-20) Glucose (70-99(Fasting)) mg/dl POC Glucose 71 158 H 144 H (70-99) mg/dl Calcium (8.5-10.1) mg/dl 08/10/22 08/10/22 Range/Units 08:12 07:35 WBC (4.8-10.8) K/ul RBC (4.20-5.40) M/uL Hgb (12.0-16.0) g/dl Hct (37.0-47.0) % MCV (80.0-100.0) fL MCH (25.0-34.0) pg MCHC (32.0-36.0) g/dL RDW Std Deviation (36.4-46.3) fL RDW Coeff of Santino (11.5-14.5) % Plt Count (130-400) K/uL MPV (9.4-12.4) fL Sodium 141 (136-145) mmol/L Potassium 3.7 (3.5-5.1) mmol/L Chloride 109 H (98-107) mmol/L Carbon Dioxide 28 (21-32) mmol/L Anion Gap 4 (3-11) BUN 20 (6-23) mg/dl Creatinine 0.62 (0.6-1.2) mg/dl Est Cr Clr Drug Dosing 63.3 ml/min Est GFR ( Amer) 103.0 ml/min Est GFR (Non-Af Amer) 88.8 ml/min BUN/Creatinine Ratio 32.3 H (10-20) Glucose 137 H (70-99(Fasting)) mg/dl POC Glucose 128 H (70-99) mg/dl Calcium 9.0 (8.5-10.1) mg/dl
[2022-08-11] MEDS: MULTIVITAMIN TAB PO SCH (08:23)
[2022-08-11] MEDS: LOSARTAN POTASSIUM 25 MG TAB PO SCH (08:23)
[2022-08-11] MEDS: carvediloL 6.25 MG TAB PO SCH (08:23)
[2022-08-11] MEDS: DOCUSATE SODIUM 100 MG CAP PO SCH (08:23)
[2022-08-11] MEDS: ASPIRIN 81 MG ECTAB PO SCH (08:23)
[2022-08-11] MEDS: PANTOprazole 40 MG TAB PO SCH (08:24)
[2022-08-11] MEDS: INSULIN ASPART PER UNIT SC SCH ×2 (08:51→13:01)
--- NOTE | 2022-08-11 10:49 | Discharge Summary ---
Date of Service August 11, 2022 Admission HPI Per Admitting Provider Ms Kitchen is a pleasant 76-year-old female who presents for preop evaluation prior to right total knee replacement. She states she been having pain in his knee for many years now which is gradually worsened and is now affecting her daily activities including walking standing using stairs. She denies any previous surgeries has tried multiple cortisone injections as well as viscosupplementation without relief. She does use Tylenol as well on occasion for pain. Rates her current pain a 7 out of 10. At this point time is felt conservative measures like proceed with a right total knee replacement Admission Exam Per Admitting Provider Physical Exam: HT: 5ft WT: 61kg Constitutional: WD/WN, vitals as above no acute distress Respiratory: normal respiratory effort, lungs clear to auscultation no respiratory distress, no labored breathing and does not use accessory muscles Cardiovascular: RRR, no murmur, no edema Gastrointestinal (Abdomen): normal bowel sounds, soft, nontender, no hepatosplenomegaly Musculoskeletal: Knee: + knee abnormal to inspection (Right Knee: ), + effusion (+1 effusion), + limited ROM of knee (ROM 0/3/110), + knee ROM with crepitation, + joint line tenderness (medial joint line) and + Komal's sign positive; no deformity, no skin erythema, no ecchymosis, no valgus laxity, no varus laxity, anterior drawer test negative, Shayla's sign negative and pivot shift test negative Principal Diagnosis Right knee osteoarthritis Discharge Data Allergies Allergy/AdvReac Type Severity Reaction Status Date / Time No Known Allergies Allergy Verified 08/09/22 06:53 Consultations 08/09/22 09:50 Consult Hospitalist Routine Procedures Performed Operation Date: 08/09/22 07:00 Actual Procedures p Right Total Knee Arthroplasty(Right) - Imtiaz Gay DO Ordered Studies 08/09/22 05:00 US - OR guided needle placemen Routine Hospital Course (1) Arthritis of right knee: Patient was admitted on the above-noted date and had the above-noted surgery performed which she tolerated well. On her first postoperative day, She was sleeping upon arrival but was easily awoken. He had undergone her therapy but was feeling quite tired and sluggish. She was having some pain in the operative knee. She required IV pain medication earlier that morning. No other complaints at that time. Denied shortness of breath, chest pain, lightheadedness. Dressings were clean, dry, and intact. Calves are soft nontender. Neurovascular was intact. Toes are mobile. She was continued on her PT and OT protocols. Continued on DVT prophylaxis with aspirin p.o. twice daily, SCDs, AURORA calderon. She was continued on her pain management and at 1 dose of Toradol 15 mg IV was added. After stopping by and rechecking on her, she decided to stay 1 more day secondary to her sluggishness and wanting to continue to improve with her physical therapy. Hemoglobin was around 10 and had dropped from 14. By her second postoperative day, she was sitting up in her chair at the bedside. She was dozing off slightly but was easily awoken. She had some mild lightheadedness which she felt was secondary to her oxycodone. She was otherwise feeling well. Kat dressing was intact and functioning. She has mild swelling of the right knee consistent with surgery. Mild ecchymosis was noted. Calves are soft and nontender. Neurovascular intact. Repeat hemoglobin remained at 10. She underwent further physical therapy that morning. She felt she was ready to go home. She was otherwise remaining medically stable as well as orthopedically stable and was felt she be discharged to home. Total Time Total Time Spent Total Time Spent (In Minutes): 5 Discharge Plan Discharge Items Patient Disposition: Home - Home Health Services Reason For Visit: Right Knee Osteoarthritis Discharge Diagnosis: Right Knee Osteoarthritis Activity: Per Instructions section Weightbearing: Right weightbearing Weightbearing Comment: as tolerated with walker Non-emergency contact: Surgeon Call non-emergency contact if: you have any medication questions, your pain is not controlled, your temperature is above 101.5, your wound has increased redness and your wound has increased drainage Follow-up/Referrals: Imtiaz Gay DO [Surgeon] - (Follow up with Dr Gay or his PA in 2 weeks from the day of your surgery for your first post operative visit) PCP,NO [Physician] - Diet: Carb Consistent or DM2 Ambulatory Orders: Prothrombin Time INR (Routine) Timeframe: 1 Day Location: Determined by Patient Ordered By: Arely Enriquez Partial Thromboplastin Time (Routine) Timeframe: 1 Day Location: Determined by Patient Ordered By: Arely Enriquez Addtl Attending Provider Instructions: ACTIVITY RECOMMENDATIONS: SELF CARE INSTRUCTIONS AFTER TOTAL KNEE REPLACEMENT A. You may need to continue a physical therapy program after discharge from the hospital. There are several options available to you. Your doctor will assist you in selecting the best one for you. 1. An out-patient facility 2 to 3 times a week for therapy or home therapy. 2. Continue working on all exercises taught to you in the hospital. Your goals should be to increase bending of your knee to 90 degrees and beyond and to fully straighten your knee. B. You may progress at your own pace from walking with a walker or crutches to a cane; then to no assistive devices. C. Make walking a part of your daily routine. Be up as much as comfortable with rest periods throughout the day. Rest with leg elevation is very important. Use the ice wrap frequently for the first 3-4 weeks. D. There are no restrictions on activities. You may ride in a car, shop, participate in carpet binder and all social activities. E. Wear the long elastic stockings (AURORA hose) 20 hours a day for 2 weeks after surgery. They can be removed several times a day for laundering and for a bath. F. You may shower, no tub baths until cleared by your doctor. SPECIAL CARE INSTRUCTIONS: VERY IMPORTANT TO READ AND REVIEW A. There are a few signs you need to watch for after you are home. Call [facility] if you notice any of the followin. Increased severe knee pain. Some pain is expected especially when you exercise. 2. Increased swelling in your leg or knee; pain or swelling of the calf muscle in either lower leg. 3. Any fluid drainage from the incision. 4. Shortness of breath or chest pain. B. Please call [facility] at if you have any concerns or questions about your operation or recovery. The doctor or his nurse will return your call promptly. C. You must take antibiotics before dental work, bladder, bowel or other surgery. Your doctor will provide you with a permanent care to carry describing this precaution. IMPORTANT: * REMEMBER TO TAKE ASPIRIN, 81 MG, TWICE DAILY FOR 4 WEEKS UNLESS OTHERWISE DIRECTED. THIS IS YOUR BLOOD THINNER. * CALL IF INCREASED PAIN, REDNESS, DRAINAGE OR FEVER GREATER THAT 101. * WEAR AURORA HOSE 20 HOURS PER DAY FOR 2 WEEKS. * KAT Dressing - This is a large suction dressing covering your incision. This will help pull any excess drainage from the wound and allow your incision to heal properly. You may shower with this if you can keep the unit outside of the shower. If any bleeding or leakage is noted please call your doctor's office. This will remain on your incision for 7 days and then should be removed. This can be done yourself or by the home nursing staff if applicable. The entire unit is disposable once removed. Once removed, keep incision clean and dry. If redness or drainage is noted, please call your surgeon. . * ONCE KAT DRESSING IS REMOVED, -----> DERMABOND Prineo- This is a mesh tape dressing that is covered with glue. It should remain in place until the incision is properly healed, usually 10-14 days. This dressing is designed to naturally slough off. You may trim the excess mesh tape as it peels off. Incision may be briefly wet in a shower. Dry immediately by blotting with a clean, dry towel. Do not bath or swim until instructed by your doctor. Do not scratch, rub, or pick at the dressing. Do not apply any topical ointments or lotions until dressing is completely removed and/or instructed by your doctor. There may be a small piece of suture material at one end of your incision. Do not pull or trim this. If it is bothersome or catching on clothing, you may cover it with a band-aid. FOLLOW UP VISIT: If appointment is not already scheduled: Please call [facility] to make a follow-up appointment for 2 weeks after your surgery at . Stand-Alone Forms: My [facility], Smoking Cessation Medications and DC Order Prescriptions: New acetaminophen [Tylenol Extra Strength] 500 mg Tablet 1,000 mg PO Q8 14 Days Qty: 84 0RF aspirin 81 mg Tablet,Delayed Release (Dr/Ec) 81 mg PO BID 30 Days Qty: 60 0RF polyethylene glycol 3350 [Miralax] 17 gram powder in packet 17 g PO DAILY PRN (Reason: constipation) Qty: 5 0RF cefadroxil 500 mg capsule 500 mg PO BID Qty: 28 1RF oxycodone 5 mg tablet 5 mg PO Q4H MDD 6 PRN (Reason: pain) Qty: 30 0RF Continued amlodipine 5 mg tablet 5 mg PO QPM atorvastatin 80 mg tablet 80 mg PO QPM carvedilol 6.25 mg tablet 6.25 mg PO BID Rx Instructions: must administer with a meal/food levothyroxine 75 mcg capsule 75 mcg PO QAM losartan 25 mg tablet 25 mg PO QAM montelukast 10 mg tablet 10 mg PO QPM omeprazole 20 mg capsule,delayed release(DR/EC) 20 mg PO BID sertraline 25 mg tablet 25 mg PO QPM Tradjenta 5 mg tablet 5 mg PO QAM Jardiance 25 mg tablet 25 mg PO QAM Discontinued aspirin 81 mg tablet,delayed release (DR/EC) 81 mg PO QAM Admission Data Admit Date/Time: 08/09/22 08:59 Attending Provider: Imtiaz Gay Admit Provider: Imtiaz Gay Primary Care Provider: Obie Singh Other Providers: Imtiaz Fox ; Kenny Izquierdo
== END 2022-08-11 14:33 | disposition home health service (06) ==
LOC: 3E 05:14 → ASU 05:14